=== PATIENT | female | born 1995 | race Two or more races ===

== ENCOUNTER 2019-10-01 12:54 | Emergency (ER) | payer OTHER ==
[~2019-10-01] VITALS: Ht 160 cm; Wt 59.1 kg
--- NOTE | 2019-10-01 13:22 | PHYS DOC ---
Past History Past Medical History: No Pertinent History Past Surgical History: Alcohol Use: None General Adult EDM: Chief Complaint: PAIN ON URINATION HPI: HPI: Patient is a 23-year-old female who presents to the emergency department for evaluation, of dysuria. She states she is having vaginal discomfort only with urination. She has not had any urinary frequency or hesitancy. She has not had any vaginal discharge although she is currently on her menses. She denies any pelvic pain, fever, or any other symptoms. There are no alleviating factors to her symptoms, urinating exacerbating/precipitates her pelvic pain. Review of Systems: Review of Systems: Constitutional: Denies fever or chills GI: Denies abdominal pain, nausea, vomiting, bloody stools or diarrhea : Denies vaginal discharge, or concern for STD Musculoskeletal: Denies back pain or joint pain Heart Score: Risk Factors: Risk Factors: DM, Current or recent (<one month) smoker, HTN, HLP, family history of CAD, obesity. Risk Scores: Score 0 - 3: 2.5% MACE over next 6 weeks - Discharge Home Score 4 - 6: 20.3% MACE over next 6 weeks - Admit for Clinical Observation Score 7 - 10: 72.7% MACE over next 6 weeks - Early Invasive Strategies Allergies: Allergies: Allergies Coded Allergies Type Severity Reaction Last Updated Verified No Known Drug Allergies 10/01/19 No Physical Exam: PE: PHYSICAL EXAM: CONSTITUTIONAL: Well developed, well nourished HEAD: normocephalic, atraumatic EENT: PERRL, EOMI. Conjunctivae normal color, sclerae non-icteric; moist mucous membranes. NECK: Supple, non-tender; no meningismus. LUNGS: Lungs CTA, breathing even and unlabored. Normal air movement. HEART: Regular rate and rhythm, no murmur CHEST: No deformity; non-tender ABDOMEN: The abdomen is soft, and non-tender, no masses or bruits. EXTREM: Normal ROM; no deformity, no calf tenderness. Normal pulses palpable in all extremities. There is no pedal edema. SKIN: No rash; no diaphoresis NEURO: Alert; normal speech and cognition; CN's grossly intact; strength grossly intact without focal deficit. BACK: No CVA TTP. GENITOURINARY: There are approximately 5-6 vesicular/ulcerative lesions on the labia minora, suggestive of herpes genitalis. No other lesions are noted. Exam was performed in the presence of ER nurse Treva. Current Patient Data: Labs: Laboratory Tests Test 10/01/19 14:12 10/01/19 14:21 Urine Collection Type Unknown Urine Color Red Urine Clarity Hazy Urine pH 6.0 Urine Specific [place] 1.010 Urine Protein 100 mg/dl Urine Glucose (UA) Neg mg/dL Urine Ketones (Stick) 15 mg/dL Urine Blood Large Urine Nitrite Neg Urine Bilirubin Neg Urine Urobilinogen Dipstick 0.2 mg/dL Urine Leukocyte Esterase Mod Urine RBC >40 /HPF Urine WBC >40 /HPF Urine Squamous Epithelial Cells Mod /LPF Urine Transitional Epithelial Cells Few /LPF Urine Bacteria Mod /HPF Urine Mucus Slight /LPF Bedside Urine HCG, Qualitative hcg negative EKG: EKG: [] Radiology/Procedures: Radiology/Procedures: [] Course & Med Decision Making: Course & Med Decision Making Pertinent Labs studies reviewed. (See chart for details) [] I am unable to exclude a definitive urinary tract infection, urinalysis is suspected to be contaminated with menstrual bleeding. Patient symptoms are likely related to what appears to be genital lesions consistent with herpes although herpes testing has been taken and is pending. I discussed importance of close PCP follow-up for pending test results and return precautions. Edison Disclaimer: Edison Disclaimer: This electronic medical record was generated, in whole or in part, using a voice recognition dictation system. Departure Departure: Impression: Primary Impression: Dysuria Disposition: HOME/RESIDENCE PRIOR TO ADM Condition: STABLE Referrals: ROBERTH VELEZ APRN (PCP) Patient Instructions: Dysuria, Genital Herpes Scripts Valacyclovir Hcl (VALTREX) 1,000 Mg Tablet 1 TAB PO TID for -, #21 TAB Prov: TAMMY CRAWFORD MD 10/01/19 Sulfamethoxazole/Trimethoprim (BACTRIM 400-80 MG TABLET) 1 Each Tablet 1 TAB PO BID for - for 3 Days, #6 TAB 0 Refills Prov: TAMMY CRAWFORD MD 10/01/19 Justification of Admission: Justification of Admission: Justification of Admission Dx: N/A TAMMY CRAWFORD MD Oct 01, 2019 13:22
[2019-10-01 14:49] LABS: BILIRUBIN,URINE NEG (NEG); CLARITY,URINE HAZY; COLOR,URINE RED; GLUCOSE,URINE NEG (NEG); NITRITE,URINE NEG (NEG); UROBILINOGEN,URINE 0.2 mg/dL (0.2 mg/dL)
[2019-10-01 14:50] LABS: BACTERIA,URINE MOD /HPF (0-FEW); RBC,URINE >40 /HPF (0-2); SQUAMOUS EPITHELIAL CELL,UR MOD /LPF; WBC,URINE >40 /HPF (0-4)
[2019-10-01] MEDS ORDERED: VALA10005 PO (15:08)
[2019-10-01] MEDS ORDERED: SULF1TAB23 PO (15:08)
[2019-10-01 15:15] VITALS: BP 114/64
[2019-10-06 13:07] LABS: HERPES SIMPLEX TYPE 1 Negative (Negative); HERPES SIMPLEX TYPE 2 Positive (Negative)
== END 2019-10-01 15:15 | disposition home or self-care (01) ==
LOC: ER 12:54
DX: R30.0 Dysuria (principal)
CPT/HCPCS: 36415; 81001; 81025; 87086; 87529; 99283